=== PATIENT | female | born 1980 | race Asian ===

== ENCOUNTER 2024-06-04 09:04 | Day surgery (SDC) | payer OTHER, SELFPAY ==
[2024-05-28 08:24] VITALS: BMI 25.5
[2024-05-28 08:51] VITALS: BMI 25.5
[2024-06-04] VITALS (11 sets, daily range): BP systolic 111–147; BP diastolic 60–88; PULSE 70–91; RESP 9–20; TEMP 36.2–37.2; O2SAT 95–99; BMI 25.5
[2024-06-04 09:47] LABS: UPreg QC Valid YES; Urine Pregnancy NEGATIVE (NEGATIVE)
[2024-06-04] MEDS: Lactated Ringers 1,000 ML 100 ML IVCONT (10:22)
[2024-06-04 10:35] LABS: Glucose, Whole Blood 132 mg/dL (60-115)
--- NOTE | 2024-06-04 10:55 | HO.ANESPROP2 ---
Documented by User: Shantel Peck NP 06/03/24 09:34 HPI - Anesthesia Eval Consult details Narrative: 43yo F for Right Medial Eye Muscle Recession/Resection Anesthesia Pre-Procedure Meds Is the patient on any of the following meds?: GLP1/DPP4 PMFSH Past Medical History Medical History IUD (intrauterine device) in place Depression Diabetes Surgical History Surgical History History of Hx of laparoscopy Social History Social History (Updated 05/28/24 @ 08:22 by Vera Fermin RN) Are you a primary certified social workers in health care to a significant other at home: No Do you presently have visiting nurse or other home services: No Patient Tobacco Use Status: Never used Tobacco Use of substances other than those prescribed or required for medical reasons: No Have you been hit, kicked, punched, or otherwise hurt by someone within the past year? If so, by whom?: No Spiritual Healthcare Practices: none [facility] Healthcare Practices: [employer] [facility] Practices: none Are you DNR?: No Advance Directives: No Advance Directives Information Provided: Yes (brochure mailed) Advance Directives on File: No Recently lost weight without trying: No Eating poorly because of decreased appetite: No Nutrition Risks: No Nutritional Risk Patient : No FDLMP: n/a-has IUD : No Poor oral hygiene: No Meds Allergies Allergy/AdvReac Type Severity Reaction Status Date / Time blueberry Allergy Intermediate Itching Verified 06/04/24 09:41 eggplant Allergy Intermediate Itching Verified 06/04/24 09:41 Home Medications ?Medication ?Instructions ?Recorded ?Confirmed ?Last Taken ?Type acetaminophen 650 mg 650 mg PO Q8H PRN Pain 05/28/24 05/28/24 Unknown History tablet,extended release calcium 600 mg (as 1 tab PO DAILY 05/28/24 05/28/24 Unknown History carbonate)-vitamin D3 5 mcg (200 unit) tablet escitalopram oxalate 10 mg tablet 10 mg PO QAM 05/28/24 05/28/24 Unknown History metformin 500 mg tablet 500 mg PO QAM 05/28/24 05/28/24 Unknown History rosuvastatin 10 mg tablet 10 mg PO BEDTIME 05/28/24 05/28/24 Unknown History semaglutide 1 mg/dose (4 mg/3 mL) 1 mg subcut QWEEK 05/28/24 06/04/24 05/25/24 History subcutaneous pen injector (Ozempic) Exam Height,Weight and Vital Signs: Height 5 ft 1 in Weight 61.2 kg Assessment and Plan Assessment Anesthesia Assessment: Chart Reviewed Documented by User: Maddy Patel DO 06/04/24 11:47 HPI - Anesthesia Eval Anesthesia Pre-Procedure Meds Is the patient on any of the following meds?: GLP1/DPP4 PMFSH Past Medical History Medical History IUD (intrauterine device) in place Depression Diabetes Family History Family history of problems with anesthesia: No Surgical History Surgical History History of Hx of laparoscopy History of Problems with Anesthesia: No Social History Social History (Updated 05/28/24 @ 08:22 by Vera Fermin RN) Are you a primary certified social workers in health care to a significant other at home: No Do you presently have visiting nurse or other home services: No Patient Tobacco Use Status: Never used Tobacco Use of substances other than those prescribed or required for medical reasons: No Have you been hit, kicked, punched, or otherwise hurt by someone within the past year? If so, by whom?: No Spiritual Healthcare Practices: none [facility] Healthcare Practices: [employer] [facility] Practices: none Are you DNR?: No Advance Directives: No Advance Directives Information Provided: Yes (brochure mailed) Advance Directives on File: No Recently lost weight without trying: No Eating poorly because of decreased appetite: No Nutrition Risks: No Nutritional Risk Patient : No FDLMP: n/a-has IUD : No Poor oral hygiene: No Meds Allergies Allergy/AdvReac Type Severity Reaction Status Date / Time blueberry Allergy Intermediate Itching Verified 06/04/24 09:41 eggplant Allergy Intermediate Itching Verified 06/04/24 09:41 Home Medications ?Medication ?Instructions ?Recorded ?Confirmed ?Last Taken ?Type acetaminophen 650 mg 650 mg PO Q8H PRN Pain 05/28/24 05/28/24 Unknown History tablet,extended release calcium 600 mg (as 1 tab PO DAILY 05/28/24 05/28/24 Unknown History carbonate)-vitamin D3 5 mcg (200 unit) tablet escitalopram oxalate 10 mg tablet 10 mg PO QAM 05/28/24 05/28/24 Unknown History metformin 500 mg tablet 500 mg PO QAM 05/28/24 05/28/24 Unknown History rosuvastatin 10 mg tablet 10 mg PO BEDTIME 05/28/24 05/28/24 Unknown History semaglutide 1 mg/dose (4 mg/3 mL) 1 mg subcut QWEEK 05/28/24 06/04/24 05/25/24 History subcutaneous pen injector (Ozempic) Exam Exam Date and Time: 06/04/24 1055 Height,Weight and Vital Signs: Height 5 ft 1 in Weight 61.2 kg Vital Signs Temperature 98.9 F 06/04/24 10:21 Pulse Rate 70 06/04/24 10:21 Respiratory Rate 14 06/04/24 10:21 Blood Pressure 147/85 H 06/04/24 10:21 Pulse Oximetry 96 06/04/24 10:21 Oxygen Delivery Method Room Air 06/04/24 10:21 Temperature 98.9 F 06/04/24 10:21 Pulse Rate 70 06/04/24 10:21 Respiratory Rate 14 06/04/24 10:21 Blood Pressure 147/85 H 06/04/24 10:21 Pulse Oximetry 96 06/04/24 10:21 Oxygen Delivery Method Room Air 06/04/24 10:21 Airway Mallampati Class: II TM Dist: >3cm Neck ROM: Full Loose/Missing/Broken Teeth: No (patient denies any loose or broken teeth) Heart: S1S2 Lungs: CTAB Assessment and Plan Assessment Anesthesia Assessment: Anesthesia Plan Discussed and Chart Reviewed Final Anesthetic Review Family History of Problems with Anesthesia: No History of Problems with Anesthesia: No NPO: Yes ASA Class: II Final Preanesthetic Review: No Changes in Pt Med Stat, Meds/Allgs Chart Reviewed, Consent Obtained/Reviewed and Anes Risks/Benef Reviewed Patient Risk: Low Procedure Risk: Low Anesthetic Plan Anesthetic Plan: GA and Agree w/ Assess. and Plan Disposition: Standard PACU
[2024-06-04] MEDS: oxyCODONE HCl Immed Release 5 MG TABLET PO (12:35)
[2024-06-04] MEDS: fentaNYL citrate/PF 100 MCG/2 ML VIAL 50 MCG IVPUSH (12:53)
--- NOTE | 2024-06-04 13:35 | HO.OPHTHAL ---
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 Procedure recession of left medial rectus 6 mm with a resection of [address] Tapia. Anesthesia general. Complications none. The patient was brought to the operating room placed under general anesthesia. The left eye was prepped and draped in the usual sterile ophthalmic fashion. A lid speculum was placed in the eye and an incision was made at bare sclera in the inferonasal fornix. The medial rectus muscle was hooked and a 2 mm resection marked off with cautery. The resection point was secured with a double-armed Vicryl suture and the muscle disinserted from the globe. The resection point was then placed 6 mm behind the original insertion using the Vicryl suture. Conjunctiva was closed with interrupted Vicryl sutures. The patient was then awoken from general anesthesia and discharged to postoperative recovery in good condition.
== END 2024-06-04 14:36 | disposition home or self-care (01) ==
PROVIDERS: Nurse Practitioner; PCP Internal Medicine; Visit Provider Ophthalmology
PROC: (CPT 67311; principal; 2024-06-04 11:00)
DX: H49.22 Sixth [abducent] nerve palsy, left eye (principal); E11.9 Type 2 diabetes mellitus without complications; F32.A Depression, unspecified; Z97.5 Presence of (intrauterine) contraceptive device; Z79.85 Long-term (current) use of injectable non-insulin antidiabetic drugs; Z79.899 Other long term (current) drug therapy; Z98.890 Other specified postprocedural states
CPT/HCPCS: 67311; 81025; 82947; J0131; J1100; J1596; J1885; J2003; J2371; J2405; J2704; J3010